=== PATIENT | male | born 1945 | race Caucasian/White ===

== ENCOUNTER 2016-12-17 08:00 | Inpatient (IN) | payer MEDICARE, BC ==
[~2016-12-17] VITALS: Ht 182.9 cm; Wt 93.0 kg
[2016-12-17 09:08] LABS: HEMOGLOBIN 13.9 gm/dl (14.0-17.5); RED BLOOD COUNT 4.74 M/UL (4.20-5.50); WHITE BLOOD COUNT 5.6 K/UL (4.5-11.0)
[2016-12-17] MEDS ORDERED: LISINOPRIL40 MG PO (13:21)
[2016-12-17] MEDS ORDERED: NORVASC10 MG PO (13:22)
[2016-12-17] MEDS ORDERED: PLAVIX 75 MG TA75 MG PO (13:22)
[2016-12-17] MEDS ORDERED: COREG 12.5MG12.5 MG PO (13:22)
[2016-12-17] MEDS ORDERED: ASPIR 8181 MG PO (13:23)
[2016-12-17] MEDS ORDERED: LORTAB 7.5-3251 EACH PO (13:24)
[2016-12-17] MEDS ORDERED: PREVACID30 MG PO (13:25)
[2016-12-17] MEDS ORDERED: SOMA350 MG PO (13:25)
[2016-12-18 05:05] LABS: HEMOGLOBIN 13.8 gm/dl (14.0-17.5); RED BLOOD COUNT 4.67 M/UL (4.20-5.50)
[2016-12-18 05:08] LABS: WHITE BLOOD COUNT 3.2 K/UL (4.5-11.0)
[2016-12-19 05:28] LABS: HEMOGLOBIN 13.4 gm/dl (14.0-17.5); RED BLOOD COUNT 4.59 M/UL (4.20-5.50)
[2016-12-19 05:33] LABS: WHITE BLOOD COUNT 8.9 K/UL (4.5-11.0)
[2016-12-20 05:10] LABS: HEMOGLOBIN 13.5 gm/dl (14.0-17.5); RED BLOOD COUNT 4.59 M/UL (4.20-5.50); WHITE BLOOD COUNT 9.8 K/UL (4.5-11.0)
[2016-12-20 05:34] LABS: BUN/CREATININE RATIO 27 (0-10)
[2016-12-21 06:58] LABS: BUN/CREATININE RATIO 32 (0-10)
[2016-12-21] MEDS ORDERED: OMNICEF 300 MG300 MG PO (11:07)
[2016-12-21] MEDS ORDERED: PREDNISONE10 MG PO (11:07)
[2016-12-21] MEDS ORDERED: PROAIR HFA8.5 GM INH (11:08)
== END 2016-12-21 11:34 | disposition home or self-care (01) | DRG 189 ==
LOC: ER1 08:00 → ZEROF 09:40 → MED SURG 4 09:40
PROVIDERS: Emergency Medicine; Internal Medicine; Physician Assistant Medical; ADMIT Internal Medicine Infectious Disease
DX: J96.01 Acute respiratory failure with hypoxia (principal); J10.00 Influenza due to other identified influenza virus with unspecified type of pneumonia; J18.9 Pneumonia, unspecified organism; J44.0 Chronic obstructive pulmonary disease with (acute) lower respiratory infection; J45.901 Unspecified asthma with (acute) exacerbation; J44.1 Chronic obstructive pulmonary disease with (acute) exacerbation; N17.9 Acute kidney failure, unspecified; E87.1 Hypo-osmolality and hyponatremia; J98.11 Atelectasis; I25.10 Atherosclerotic heart disease of native coronary artery without angina pectoris; I10 Essential (primary) hypertension; E78.5 Hyperlipidemia, unspecified; K21.9 Gastro-esophageal reflux disease without esophagitis; I71.4 Abdominal aortic aneurysm, without rupture; D35.01 Benign neoplasm of right adrenal gland; F17.210 Nicotine dependence, cigarettes, uncomplicated; R91.1 Solitary pulmonary nodule; R74.0 Nonspecific elevation of levels of transaminase and lactic acid dehydrogenase [LDH]; I25.2 Old myocardial infarction; Z95.5 Presence of coronary angioplasty implant and graft; Z79.02 Long term (current) use of antithrombotics/antiplatelets; Z79.82 Long term (current) use of aspirin; Z79.891 Long term (current) use of opiate analgesic; Z79.899 Other long term (current) drug therapy; Z98.890 Other specified postprocedural states; Z80.0 Family history of malignant neoplasm of digestive organs
CPT/HCPCS: 36415; 36600; 71010; 71020; 71250; 76705; 80048; 80053; 82803; 83605; 83735; 83880; 84484; 85025; 85027; 87040; 93005; 94640; 94664; 96374; 96375; 99285; G0378; J0456; J0696; J1956; J2920; J2930; J7030

== ENCOUNTER → 2021-05-31 | Outpatient (CLI) | payer MEDICARE, BC ==
[~2021-05-31] MED LIST: ALBUTEROL1.25 MG/3 INH; ASPIR 8181 MG PO; COREG 12.5MG12.5 MG PO; LISINOPRIL40 MG PO; LORTAB 7.5-3251 EACH PO; NEBULIZER UNIT; NORVASC10 MG PO; OMNICEF 300 MG300 MG PO; PLAVIX 75 MG TA75 MG PO; PREDNISONE10 MG PO; PREVACID30 MG PO; PROAIR HFA8.5 GM INH; PROVENTIL HFA6.7 GM INH; SOMA350 MG PO
== END ==
LOC: EXRD 12:53
DX: N18.32 Chronic kidney disease, stage 3b (principal); N28.1 Cyst of kidney, acquired; N26.1 Atrophy of kidney (terminal)
CPT/HCPCS: 76775

== ENCOUNTER 2022-03-27 11:47 | Emergency (ER) | payer MEDICARE, BC | END 2022-03-27 13:42 | disposition home or self-care (01) | LOC: ER1 11:47 | DX: S61.412A Laceration without foreign body of left hand, initial encounter (principal); F17.210 Nicotine dependence, cigarettes, uncomplicated; W27.0XXA Contact with workbench tool, initial encounter; Y92.009 Unspecified place in unspecified non-institutional (private) residence as the place of occurrence of the external cause; Z23 Encounter for immunization | CPT/HCPCS: 12002; 73130; 90471; 90715; 99283 ==